=== PATIENT | male | born 1965 | race Two or more races ===

== ENCOUNTER → 2019-03-22 | Day surgery (SDC) | payer OTHER ==
[~2019-03-22] MED LIST: IV RINGERS,LACTATED 1000ML 1,000 ML IV SCH; LIDOCAINE 1% PF 2 ML VIAL. ID PRN; LISI-338 PO; METF10007 PO; MIDAZOLAM HCL/PF 2 MG/2 ML VIAL. IV PRN; PROPOFOL 40 ML IV ONE; SITA100T PO; fentaNYL PF VIAL 100 MCG/2 ML VIAL IV PRN
[2019-03-22 09:42] VITALS: BP 99/71
--- NOTE | 2019-03-22 10:52 | CONS ---
DATE OF CONSULTATION: 03/22/2019 GASTROINTESTINAL CONSULTATION REASON FOR CONSULTATION: Colorectal screen. REFERRING PHYSICIAN: REJI Conklin HISTORY: A 53-year-old male whose past medical history is significant for diabetes, who is seen for screening colon exam. He has no complaints. There has been no diarrhea, constipation, melena, hematochezia. Family history is unrevealing for colon polyps or colon cancer. He is otherwise without additional complaints. PAST MEDICAL HISTORY: Diabetes. ALLERGIES: None. MEDICATIONS: Include lisinopril, metformin and Januvia. FAMILY AND SOCIAL HISTORY: Significant for diabetes, nondrinker, nonsmoker. No surgical operations. REVIEW OF SYSTEMS: As per records. PHYSICAL EXAMINATION: GENERAL: Reveals a well-nourished, well-developed male. VITAL SIGNS: Temp is 97, pulse 92, respiratory rate is 20, blood pressure is 130/85. HEENT: Reveals normocephalic and atraumatic head. Pupils and extraocular movements are not tested. Sclerae anicteric. NECK: Supple. LUNGS: Clear. CARDIOVASCULAR: Reveals S1 and S2 without S3, S4 or appreciable murmur. ABDOMEN: Reveals a soft abdomen, normal bowel sounds without appreciable hepatosplenomegaly. EXTREMITIES: Reveals no cyanosis, clubbing, edema. IMPRESSION: Colorectal screening is warranted at this time. Risks and benefits of the procedure including risk of hemorrhage and perforation during the operation have been discussed. The patient is willing to proceed. ELSY SANDERS MD DR: JOHN/marlene JOB#: [id number] / [id number] TAIWO Fernandez
--- NOTE | 2019-03-23 18:06 | PATHOLOGY ---
[facility] Accession Number: [id number] . 01 Material submitted: . hepatic flexure - HEPATIC FLEXURE POLYP . 01 Clinician provided ICD-10: Z12.11 . 01 Clinical history: . Colon screening . 02 Diagnosis: Colon biopsies, hepatic flexure polyp: - Tubular adenoma. ([facility] 03/23/2019) P/03/23/2019 . 02 Comment: There is no high-grade dysplasia or evidence of malignancy. ([facility] 03/23/2019) . 02 Electronically signed: . Yonatan Srivastava MD, Pathologist NPI- [id number] . 01 Gross description: . Received in formalin labeled "Noman Clark, hepatic flexure polyp," is a 0.8 x 0.7 x 0.7 cm polypoid piece of baum soft tissue. The margin is inked and the tissue is sectioned perpendicular to the margin and submitted in its entirely in cassette A1 and A2. Additionally received in the same container is a 0.7 x 0.5 x 0.5 cm polypoid piece of baum soft tissue. The margin is inked and the specimen is sectioned perpendicular to the margin and entirely submitted in cassette A3. ([facility]; 03/22/2019) TOB/TOB . 02 Pathologist provided ICD-10: D12.3, Z12.11 . 02 CPT . 598831 Specimen Comment: A courtesy copy of this report has been sent to Specimen Comment: [phone], . Specimen Comment: Report sent to / DR TRINIDAD Performed at: [address], [place], [place] [id number] MD Edis Desai MD Phone: [phone] Performed at: [address] [id number] MD Yonatan Srivastava MD Phone: [phone]
== END ==
LOC: SURG 07:31
PROVIDERS: ATTEND Internal Medicine Gastroenterology
DX: Z12.11 Encounter for screening for malignant neoplasm of colon (principal); D12.3 Benign neoplasm of transverse colon; K57.30 Diverticulosis of large intestine without perforation or abscess without bleeding; K64.0 First degree hemorrhoids; E11.9 Type 2 diabetes mellitus without complications; Z79.84 Long term (current) use of oral hypoglycemic drugs
CPT/HCPCS: 45385; 88305; J2704; 45380

== ENCOUNTER 2019-09-23 15:05 | Emergency (ER) | payer OTHER ==
[~2019-09-23] VITALS: Ht 165.1 cm; Wt 90.7 kg
[~2019-09-23 15:05] MED LIST changes: -IV RINGERS,LACTATED 1000ML 1,000 ML IV SCH; -LIDOCAINE 1% PF 2 ML VIAL. ID PRN; -MIDAZOLAM HCL/PF 2 MG/2 ML VIAL. IV PRN; -PROPOFOL 40 ML IV ONE; -fentaNYL PF VIAL 100 MCG/2 ML VIAL IV PRN
[2019-09-23 15:29] VITALS: BP 140/91
--- NOTE | 2019-09-23 15:51 | PHYS DOC ---
Past Medical History Past Medical History: Diabetes-Type II Alcohol Use: None Drug Use: None Adult General Chief Complaint Chief Complaint: HAND PROBLEM HPI HPI Patient is a 53 year old male who presents with right hand pain after he smashed his hand change entire a trailer on Wednesday. He rates his pain as 7 out of 10 in severity and sharp. Has not been taking medicine at home for this. Review of Systems Review of Systems Constitutional: Denies fever or chills [] Eyes: Denies change in visual acuity, redness, or eye pain [] HENT: Denies nasal congestion or sore throat [] : Denies dysuria or hematuria [] Musculoskeletal: Reports distal 4th digit pain. Integument: Denies rash or skin lesions [] Neurologic: Denies headache, focal weakness or sensory changes [] Endocrine: Denies polyuria or polydipsia [] Complete systems were reviewed and found to be within normal limits, except as documented in this note. Allergies Allergies Allergies Coded Allergies Type Severity Reaction Last Updated Verified No Known Drug Allergies 03/22/19 No Physical Exam Physical Exam Constitutional: Well developed, well nourished, no acute distress, non-toxic appearance. [] HENT: Normocephalic, atraumatic, bilateral external ears normal, oropharynx moist, no oral exudates, nose normal. [] Eyes: PERRLA, EOMI, conjunctiva normal, no discharge. [] Skin: subungal hematoma to 4th digit R hand. Extremities: Tenderness to 4th digit distal right hand. Neurologic: Alert and oriented X 3, normal motor function, normal sensory function, no focal deficits noted. [] Psychologic: Affect normal, judgement normal, mood normal. [] Current Patient Data Vital Signs Vital Signs Date Time Temp Pulse Resp B/P (MAP) Pulse Ox O2 Delivery O2 Flow Rate FiO2 09/23/19 15:29 97.6 69 16 140/91 (107) 96 Room Air 97.6 EKG EKG [] Radiology/Procedures Radiology/Procedures [][facility] [address] [place], [place] [id number] IMAGING REPORT Signed PATIENT: CHRISSIE PENALOZA ACCOUNT: [id number] : 1965 LOCATION: ER AGE: 53 SEX: M EXAM STATUS: REG ER ORD. PHYSICIAN: MYRNA ALEXIS APRN REASON: Smashed 4th digit on Wednesday. PROCEDURE: HAND RIGHT 3V Examination: HAND RIGHT 3V History: Injury to fourth digit on one study. Pain. Comparison/Correlation: None Findings: A total 3 images of the right hand were obtained. There is space are unremarkable. No fracture or bony destruction. Punctate density which is concerning for a foreign body is present within the soft tissues on the dorsal, medial fourth digit at the middle phalangeal region near the distal interphalangeal joint. Impression: Foreign body involving the third digit. No fracture. Electronically signed by: Arcadio Cobb MD (09/23/2019 4:05 PM) [facility] DICTATED and SIGNED BY: ARCADIO COBB MD DATE: 09/23/19 1605 Course & Med Decision Making Course & Med Decision Making Pertinent Labs and Imaging studies reviewed. (See chart for details) Will get X-ray and then if no fracture will drain hematoma. X-ray does not show fracture. Has foreign body in 3rd digit. Foreign body does not appear to be acute as injury occurred to the 4th digit. Used cautery pen and placed 3 holes in 4th digit finger nail and drained hematoma. Blood was expressed and pressure was relieved. No complications. Dragon Disclaimer Dragon Disclaimer This electronic medical record was generated, in whole or in part, using a voice recognition dictation system. Departure Departure Impression: Primary Impression: Subungual hematoma of digit of hand Disposition: 01 HOME, SELF-CARE Condition: STABLE Referrals: TAIWO TRINIDAD (PCP) Patient Instructions: Subungual Hematoma Additional Instructions: Thank you for visiting [facility]. We appreciate you trusting us with your care. If any additional problems come up don't hesitate to return to visit us. Please follow up with your primary care provider so they can plan additional care if needed and know about the problem that you had. If symptoms worsen come back to the Emergency Department. Any concerning symptoms that start such as chest pain, shortness of air, weakness or numbness on one side of the body, running high fevers or any other concerning symptoms return to the ER. Problem Qualifiers Primary Impression: Subungual hematoma of digit of hand Encounter type: initial encounter Qualified Codes: S60.10XA - Contusion of unspecified finger with damage to nail, initial encounter MYRNA ALEXIS APRN Sep 23, 2019 15:51
--- NOTE | 2019-09-23 16:08 | RAD ---
Examination: HAND RIGHT 3V History: Injury to fourth digit on one study. Pain. Comparison/Correlation: None Findings: A total 3 images of the right hand were obtained. There is space are unremarkable. No fracture or bony destruction. Punctate density which is concerning for a foreign body is present within the soft tissues on the dorsal, medial fourth digit at the middle phalangeal region near the distal interphalangeal joint. Impression: Foreign body involving the third digit. No fracture. Electronically signed by: Arcadio Du MD (09/23/2019 4:05 PM) [facility]
== END 2019-09-23 16:39 | disposition home or self-care (01) ==
LOC: ER 15:05
DX: S60.041A Contusion of right ring finger without damage to nail, initial encounter (principal); E11.9 Type 2 diabetes mellitus without complications; W23.0XXA Caught, crushed, jammed, or pinched between moving objects, initial encounter; Y93.89 Activity, other specified; Y92.89 Other specified places as the place of occurrence of the external cause; Y99.8 Other external cause status
CPT/HCPCS: 11740; 73130; 99283; 99284

== ENCOUNTER 2019-12-22 13:40 | Emergency (ER) | payer OTHER ==
[~2019-12-22] VITALS: Ht 165.1 cm; Wt 86.3 kg
[2019-12-22 14:54] VITALS: BP 160/78
[2019-12-22] MEDS ORDERED: HYDROcodone/APAP 7.5/325MG 1 TAB TABLET PO ONE (15:00)
--- NOTE | 2019-12-22 15:23 | RAD ---
PROCEDURE: ANKLE RIGHT 3V STUDY DATE: 12/22/2019 CLINICAL INDICATION / HISTORY: Right ankle pain and swelling after an injury. TECHNIQUE: Right ankle 3 views. COMPARISON: None FINDINGS: The ankle mortise is approximated, and the talar dome is unremarkable. The joint space widths are maintained. No fracture or dislocation is identified. Diffuse soft tissue swelling around the right ankle is evident, more conspicuous around the lateral malleolus than over the medial malleolus. There are small ossific densities present overlying the dorsal aspect of the talus that could represent small loose bodies.. IMPRESSION: 1. Right ankle sprain. No fracture or dislocation. 2. 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 Further evaluation by MRI could be pursued as clinically warranted. Electronically signed by: Shine Clark MD (12/22/2019 3:20 PM) [id number]
[2019-12-22] MEDS ORDERED: HYDR-2761 PO (15:31)
[2019-12-22] MEDS ORDERED: NAPR-514 PO (15:31)
--- NOTE | 2019-12-22 15:31 | PHYS DOC ---
Past Medical History Past Medical History: Diabetes-Type II Past Surgical History: No Surgical History Smoking Status: Never Smoker Alcohol Use: None Drug Use: None Adult General Chief Complaint Chief Complaint: ANKLE PROBLEM HPI HPI Patient is a 53 year old male who presents to the emergency department with complaints of right lateral foot pain and swelling after rolling his ankle off of 2 steps today. Patient states he has been unable to bear weight since the injury. He denies any head neck or back pain after the fall. Patient denies any loss of consciousness, nausea, vomiting or abdominal pain. He currently rates his pain a 7 out of 10 on the pain scale, he did not take any medication for relief of pain prior to arrival in the ER. Review of Systems Review of Systems Complete ROS is negative unless otherwise noted in HPI. Current Medications Current Medications Current Medications Medications (Trade) Dose Ordered Sig/Prince Start Time Stop Time Status Last Admin Dose Admin Acetaminophen/ Hydrocodone Bitart (Lortab 7.5/325) 1 tab 1X ONCE 12/22/19 15:00 12/22/19 15:01 DC 12/22/19 15:07 1 TAB Allergies Allergies Allergies Coded Allergies Type Severity Reaction Last Updated Verified No Known Drug Allergies 03/22/19 No Physical Exam Physical Exam See Above Constitutional: Well developed, well nourished, no acute distress, non-toxic appearance. [] HENT: Normocephalic, atraumatic, bilateral external ears normal, nose normal. [] Eyes: PERRLA, EOMI, conjunctiva normal, no discharge. [] Neck: Normal range of motion, no tenderness, supple, no stridor. [] Cardiovascular:Heart rate regular rhythm Lungs & Thorax: Respirations even and unlabored, no retractions, no respiratory distress Skin: Warm, dry, no erythema, no rash. [] Extremities: RLE: lateral ankle TTP, no crepitus, no obvious deformity, 2+ pedal and posterior tibial pulses, no cyanosis, no clubbing, ROM limited due to pain, 2+ edema to lateral R ankle, sensation intact. Neurologic: Alert and oriented X 3, no focal deficits noted. [] Psychologic: Affect normal, judgement normal, mood normal. [] Current Patient Data Vital Signs Vital Signs Date Time Temp Pulse Resp B/P (MAP) Pulse Ox O2 Delivery O2 Flow Rate FiO2 12/22/19 15:07 17 96 Room Air 12/22/19 14:54 98.3 69 160/78 (105) 98.3 EKG EKG [] Radiology/Procedures Radiology/Procedures PROCEDURE: ANKLE RIGHT 3V PROCEDURE: ANKLE RIGHT 3V STUDY DATE: 12/22/2019 CLINICAL INDICATION / HISTORY: Right ankle pain and swelling after an injury. TECHNIQUE: Right ankle 3 views. COMPARISON: None FINDINGS: The ankle mortise is approximated, and the talar dome is unremarkable. The joint space widths are maintained. No fracture or dislocation is identified. Diffuse soft tissue swelling around the right ankle is evident, more conspicuous around the lateral malleolus than over the medial malleolus. There are small ossific densities present overlying the dorsal aspect of the talus that could represent small loose bodies.. IMPRESSION: 1. Right ankle sprain. No fracture or dislocation. 2. 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 Further evaluation by MRI could be pursued as clinically warranted. Electronically signed by: Shine Clark MD (12/22/2019 3:20 PM) [] Course & Med Decision Making Course & Med Decision Making Pertinent Labs and Imaging studies reviewed. (See chart for details) [] Dragon Disclaimer Dragon Disclaimer This electronic medical record was generated, in whole or in part, using a voice recognition dictation system. Departure Departure Impression: Primary Impression: Pain in lateral portion of right ankle Additional Impression: Right ankle injury Disposition: 01 HOME, SELF-CARE Condition: STABLE Referrals: JELANI HEART MD Patient Instructions: Ankle Pain, Ankle Sprain, Acute, with [facility] Additional Instructions: Fill prescription(s) and use as directed. Recommend application of ice, elevation, and rest of affected extremity. Wear the splint that was placed and use the crutches provided until follow up appointment. Follow up with your primary care doctor or Dr. Heart next week. Return to the ER if your symptoms worsen. Scripts Hydrocodone Bit/Acetaminophen (HYDROCODONE-APAP 5-325 ) 1 Tab Tablet 1 TAB PO PRN Q6HRS PRN for PAIN for 3 Days, #10 TAB 0 Refills Prov: [employer] DOCTOR 12/22/19 Naproxen (NAPROXEN) 500 Mg Tablet 1 TAB PO BID PRN for PAIN for 10 Days, #20 TAB 0 Refills Prov: ADRIANO SANTIA[employer] APRN 12/22/19 Splinting Splinting : Location: R ankle Pre-Made Type: aircast Pre-Proc Neuro Vasc Exam: normal Post-Proc Neuro Vasc Exam: normal, unchanged from pre-exam Progress shira wrap and velcro air cast to RLE placed by ERT. Problem Qualifiers Additional Impression: Right ankle injury Encounter type: initial encounter Qualified Codes: S99.911A - Unspecified injury of right ankle, initial encounter [employer] Dec 22, 2019 15:31
== END 2019-12-22 16:22 | disposition home or self-care (01) ==
LOC: ER 13:40
DX: S93.491A Sprain of other ligament of right ankle, initial encounter (principal); R60.0 Localized edema; E11.9 Type 2 diabetes mellitus without complications; W10.8XXA Fall (on) (from) other stairs and steps, initial encounter; Y93.89 Activity, other specified; Y92.89 Other specified places as the place of occurrence of the external cause; Y99.8 Other external cause status
CPT/HCPCS: 29515; 73610; 99284